=== PATIENT | male | born 1990 | race Two or more races ===

== ENCOUNTER 2019-10-07 15:12 | Emergency (ER) | payer OTHER, SELFPAY ==
[2019-10-07 15:27] VITALS: BP 134/83; PULSE 87; RESP 16; TEMP 37.3; O2SAT 98
--- NOTE | 2019-10-07 15:38 | ED.GENADULT ---
HPI - General Adult General Chief complaint: Upper Respiratory Infection Stated complaint: cough/chest congestion Time Seen by Provider: 10/07/19 15:39 Source: patient and RN notes reviewed Mode of arrival: ambulatory Limitations: no limitations History of Present Illness HPI narrative: This is a 29 years old female presents to the office for an evaluation of cough for one week. Cough has gotten much better however he still have to clear his throat occasionally due to congestion. Currently he denies ear pain, sore throat, chest pain, or shortness of breath. He just needed reassurance that he is okay. Related Data Home Medications Medication Instructions Recorded Confirmed No Home Medications 10/07/19 10/07/19 Allergies Allergy/AdvReac Type Severity Reaction Status Date / Time No Known Allergies Allergy Verified 10/07/19 15:26 Review of Systems Review of Systems: Narrative: CONSTITUTIONAL: Denies fever, chills ENT: Denies rhinorrhea,sore throat, otalgia. CARDIOVASCULAR: Denies chest pain RESPIRATORY: Denies dyspnea, wheezing. Reports occasional cough where he only needs to clear his throat. GASTROINTESTINAL: Denies abdominal pain, nausea, vomiting GENITOURINARY: Denies urinary symptoms SKIN: Denies rash MUSCULOSKELETAL: Denies acute back pain NEUROLOGIC: Denies lightheaded PMFSH Social History Social History Smoking status: Current every day smoker Comments At time of signature, I agree with nursing past medical, surgical, social and family history. There is no relevant family history pertinent to the presenting complaint. Exam Narrative: Exam Narrative: GENERAL: This is a well-nourished, well-developed patient, in no apparent distress. EYES: Sclera clear/white. Vision is grossly intact. EARS: External ears normal, auditory canals clear and without drainage, TMs normal without perforation. Hearing grossly intact. NOSE: External nose normal with no obvious nasal discharge, nares without redness, no rhinorrhea. THROAT: Mucous membranes moist, posterior pharynx clear. NECK: Neck supple, non-tender without lymphadenopathy, masses or thyromegaly. CARDIOVASCULAR: Regular rate and rhythm without murmurs, gallops, or rubs. RESPIRATORY: Clear to auscultation. Breath sounds equal bilaterally. No wheezes, rales, or rhonchi. GASTROINTESTINAL: Abdomen soft, non-tender, nondistended. Bowel sounds are active. No guarding. SKIN: warm, intact with no suspicious rash NEURO: awake, alert, and oriented to person, place and time. There were no obvious focal neurologic abnormalities. Steady gait Ara Coma Scale Eye Opening: Spontaneous 4 [place] Coma Scale Motor: Obeys Commands 6 [place] Coma Scale Verbal: Oriented 5 Course Vital Signs Vital signs: Vital Signs Temperature 99.1 F 10/07/19 15:27 Pulse Rate 87 10/07/19 15:27 Respiratory Rate 16 10/07/19 15:27 Blood Pressure 134/83 10/07/19 15:27 Pulse Oximetry 98 10/07/19 15:27 Temperature 99.1 F 10/07/19 15:27 Pulse Rate 87 10/07/19 15:27 Respiratory Rate 16 10/07/19 15:27 Blood Pressure 134/83 10/07/19 15:27 Pulse Oximetry 98 10/07/19 15:27 Medical Decision Making MDM Narrative Medical decision making narrative: Discharge instructions reviewed with patient, as well as provided in writing per nursing staff. The instructions also include specific and strict return/GO TO THE ER as well as f/u information. All questions have been answered, and the patient deny any further questions with discharge and discharge plan. Differential Diagnosis Differential Diagnosis: Allergic Rhinitis, Upper respiratory cough syndrome, Pharyngitis, Sinusitis, Bronchitis, viral URI, COVID, influenza Vital Signs Vital Signs: Vital Signs Temperature 99.1 F 10/07/19 15:27 Pulse Rate 87 10/07/19 15:27 Respiratory Rate 16 10/07/19 15:27 Blood Pressure 134/83 10/07/19 15:27 Pulse
== END 2019-10-07 15:52 | disposition home or self-care (01) ==
PROVIDERS: Emergency Provider Nurse Practitioner
DX: Z71.1 Person with feared health complaint in whom no diagnosis is made (principal)
CPT/HCPCS: 99201; G0463